=== PATIENT | female | born 1935 | race Caucasian/White ===

== ENCOUNTER 2023-01-29 12:44 | Outpatient (CLI) | payer MEDICARE | END 2023-01-29 12:45 | disposition home or self-care (01) | LOC: CSHMAMMO 12:44 | PROVIDERS: ATTEND Family Medicine | DX: Z12.31 Encounter for screening mammogram for malignant neoplasm of breast (principal); N64.89 Other specified disorders of breast; Z80.3 Family history of malignant neoplasm of breast | CPT/HCPCS: 77063; 77067 ==

== ENCOUNTER 2024-05-20 12:46 | Outpatient (CLI) | payer MEDICARE | END 2024-05-20 12:47 | disposition home or self-care (01) | LOC: CSHCT 12:46 | PROVIDERS: ATTEND Internal Medicine | DX: R91.1 Solitary pulmonary nodule (principal) | CPT/HCPCS: 71250 ==